=== PATIENT | female | born 1970 | race African-American/Black ===

== ENCOUNTER 2019-03-09 09:05 | Inpatient (IN) | payer OTHER ==
[2019-03-07 12:18] VITALS: BMI 29.2
[2019-03-09] MEDS ORDERED: ceFAZolin SODIUM 1 GM VIAL ONE ×3 (09:30→16:43)
[2019-03-09] MEDS ORDERED: CEFAZOLIN 2 GM/D5W 2 GM/50 ML ML IVPB ONE (09:36)
[2019-03-09] MEDS ORDERED: PROPOFOL 20 ML ONE (10:16)
[2019-03-09] MEDS ORDERED: MIDAZOLAM HCL 2 MG/2 ML SINGLE DOSE VIAL ONE ×5 (10:17→10:40)
[2019-03-09] MEDS ORDERED: DEXAMETHASONE SOD PHOSPHATE 4 MG/1 ML VIAL ONE (10:17)
[2019-03-09] MEDS ORDERED: KETOROLAC TROMETHAMINE 30 MG/1 ML VIAL ONE (10:17)
[2019-03-09] MEDS ORDERED: BUPIVACAINE LIPOSOME/PF (EXPAREL) 266 MG/20 ML VIAL ONE (10:18)
[2019-03-09] MEDS ORDERED: BUPIVACAINE HCL/PF 0.25% (2.5MG/ML) 10 ML VIAL ONE (10:18)
[2019-03-09] MEDS ORDERED: ROCURONIUM BROMIDE 50 MG/5 ML SYRINGE ONE (10:18)
[2019-03-09] MEDS ORDERED: DESFLURANE GAS 240 ML BOTTLE IH ONE (10:22)
[2019-03-09] MEDS ORDERED: SCOPOLAMINE HYDROBROMIDE 1 PATCH PATCH.TD72 ONE (10:41)
[2019-03-09] MEDS ORDERED: ACETAMINOPHEN INJECTION 100 ML IVPB ONE (10:42)
[2019-03-09] MEDS ORDERED: ONDANSETRON 4 MG/2 ML VIAL IVPUSH PRN ×3 (10:47→13:14)
[2019-03-09] MEDS ORDERED: HYDROmorphone HCl 2 MG/ML VIAL IVPUSH PRN (10:49)
[2019-03-09] MEDS ORDERED: fentaNYL CITRATE 250 MCG/5 ML VIAL ONE (11:15)
[2019-03-09] MEDS ORDERED: ceFAZolin SODIUM 1 GM VIAL IVPB ONE (11:29)
[2019-03-09] MEDS ORDERED: NEOSTIGMINE METHYLSULFATE 0.5 MG/ML - 10 ML MDV ONE (12:11)
[2019-03-09] MEDS ORDERED: GLYCOPYRROLATE 0.2 MG/1 ML VIAL ONE ×3 (12:12→12:56)
--- NOTE | 2019-03-09 12:56 | OP ---
Operative Note - Note: Operative Date: 03/09/19 Pre-Operative Diagnosis: Large uterine leiomyomata. Menorrhagia. Pelvic pain. Operation: KEVIN & BS. ROSE Post-Operative Diagnosis: Other (Same + pelvic/abdominal adhesions.) Surgeon: Greg Mccain Anesthesia: General Estimated Blood Loss (mls): 50 Operative Report Dictated: Yes
[2019-03-09] MEDS ORDERED: IBUPROFEN 800 MG/8 ML IJ IVPB PRN (13:14)
[2019-03-09] MEDS ORDERED: DOCUSATE SODIUM 100 MG CAPSULE (FP) PO PRN (13:14)
[2019-03-09] MEDS ORDERED: SIMETHICONE 80 MG TAB.CHEW (FP) PO PRN (13:14)
[2019-03-09] MEDS ORDERED: BISACODYL 5 MG TABLET.DR (FP) PO ONE (13:14)
[2019-03-09] MEDS ORDERED: oxyCODONE HCL 5 MG TABLET PO PRN (13:14)
[2019-03-09] MEDS ORDERED: ACETAMINOPHEN 325 MG TABLET (FP) PO PRN (13:14)
--- NOTE | 2019-03-09 13:26 | SURG ---
Surgery Video Game Producer Note Video Game Producer: Ke Larose PA-C Date of Service: 03/09/19 Diagnosis: Large uterine leiomyomata. Menorrhagia. Pelvic pain. Procedure: Total abdominal hysterectomy, bilateral salpingectomy, and lysis of adhesions I was present for the entirety of the operative procedure. For further detail, please refer to operative report. Visit type - Case Type Case Type: Scheduled - Emergency Emergency Visit: No - New patient This patient is new to me today: Yes Date on this admission: 03/09/19 - Critical Care Critical Care patient: No
[2019-03-09] MEDS: HYDROmorphone HCl 2 MG/ML VIAL IVPUSH PRN ×4 (13:52→14:38)
[2019-03-09] MEDS ORDERED: HYDROmorphone HCl 2 MG/ML VIAL ONE (13:52)
[2019-03-09] MEDS: LACTATED RINGERS SOLUTION 1,000 ML IV SCH (15:10)
--- NOTE | 2019-03-09 15:38 | OP ---
DATE OF OPERATION: DATE OF DICTATION: 03/09/2019 PREOPERATIVE DIAGNOSES: 1. Large, enlarging uterine leiomyoma. 2. Pelvic pain. 3. Menometrorrhagia. POSTOPERATIVE DIAGNOSES: 1. Large, enlarging uterine leiomyoma. 2. Pelvic pain. 3. Menometrorrhagia. 4. Pelvic and abdominal adhesions. OPERATION: 1. Total abdominal hysterectomy and bilateral salpingectomy. 2. Lysis of adhesions. SURGEON: Marlene Hopper MD PANTS BUSHELER: SEVERIANO Simmons ANESTHESIOLOGIST: Eneida Chilel MD ANESTHESIA: General and TAP block. PROCEDURE AND FINDINGS: Under excellent anesthesia in dorsal supine position, patient was examined, and abdomen was prepped and draped in the normal fashion. Skin was opened in line with very well-healed previous section scar and extended transversely through the whole depth of subcutaneous tissue. Fascia was opened transversely, dissected off the recti muscles, which were then divided using Bovie in the midline. Peritoneum was entered vertically. Findings were as follows: Large uterus compatible with about 16 weeks with massive posterior myoma filling the cul-de-sac and pressing on the vagina was noted. Another anterior and superior myoma was identified, and cervix was retracted and placed very anteriorly. Cervix was difficult to identify on examination with or without anesthesia and even on direct intraoperative evaluation it was not clear to assess its position. Adnexa were within normal limits. The remaining content of abdomen and pelvis were within normal limits as well with normal appendix. Right-sided tube was resected using LigaSure. Right-sided round ligament was opened with LigaSure, and broad ligament was entered. Utero-ovarian ligament was then divided using LigaSure, and additional tie was placed on the proximal stump. Anterior and posterior leaf of broad ligament were incised, and bladder was dissected sharply without any difficulties. Uterine plexus was identified on the right side, clamped, divided, and suture ligated with Vicryl 0. Left side was then addressed. Mesosalpinx was identified using LigaSure. That tube was left attached to the uterus. The round ligament was opened, broad ligament was entered, and utero-ovarian ligament was divided with LigaSure and ligated. Bladder flap was taken completely off the cervix. Uterine plexus was clamped, divided, and suture ligated. Cardinal ligaments and uterosacral ligaments required 1 clamp, divide, and suture approach on each of them bilaterally. Vaginal vault was entered sharply posteriorly, and cervix was excised. IUD string was noted protruding from the cervix. Specimen was sent for pathology. Vaginal vault was closed using Vicryl 0 sutures. Angles were secured in modified TeLinde fashion, which were also suspected on uterosacral and cardinal ligament stumps. Remains of the vault were closed with continuous running 2-0 Vicryl sutures. Pelvis was lavaged totally and examined. Hemostasis was excellent. At this point, adhesion between the omentum to anterior abdominal wall were identified. They were all released using primarily LigaSure as well as Bovie. This was necessary for the decrease in pelvic pain, decrease in potential bowel obstruction, and to allow better closure of the peritoneum. This part of the surgery went uneventfully as well. With the count reported correct, abdomen was closed in layers. Peritoneum was closed with continuous running 2-0 Vicryl, fascia with continuous running 1 Vicryl, subcutaneous tissue with interrupted 2-0 Biosyn suture, and skin was closed with continuous running subcuticular Biosyn 2-0. Steri-Strips were applied. Dressing was placed on the abdomen and secured in place using a binder. Blood loss was 50 mL. Urine was clear in the Licea catheter bag. Patient withstood the surgery very well and was transferred to the PACU awake and comfortable. MARLENE HOPPER MD [id number] MTDD
[2019-03-09] MEDS ORDERED: DEXTROSE 5%-WATER - 50 ML IVPB ONE (16:43)
[2019-03-09] MEDS: CEFAZOLIN 1 GM in DEXTROSE 5%-WATER - 50 ML IVPB SCH (17:02)
--- NOTE | 2019-03-09 21:11 | PN ---
Progress Note (short form) - Note Progress Note: Postop. 21:05 hrs. Pt feels well. Good pain control. Not OOB yet. Procedure and findings discussed in details. Incision clean and dry. OOB! discussed w nursing. Licea out tonight. Diet as tolerated.
[2019-03-09] MEDS: oxyCODONE HCL 5 MG TABLET PO PRN (21:17)
[2019-03-09] MEDS ORDERED: amLODIPine BESYLATE 10 MG TABLET (FP) PO SCH (22:00)
[2019-03-10] MEDS ORDERED: ceFAZolin SODIUM 1 GM VIAL ONE ×2 (02:34→09:07)
[2019-03-10] MEDS ORDERED: DEXTROSE 5%-WATER - 50 ML IVPB ONE ×2 (02:34→09:07)
[2019-03-10] MEDS: CEFAZOLIN 1 GM in DEXTROSE 5%-WATER - 50 ML IVPB SCH ×2 (02:40→09:29)
[2019-03-10] MEDS: LACTATED RINGERS SOLUTION 1,000 ML IV SCH (04:02)
--- NOTE | 2019-03-10 08:43 | PN ---
Progress Note (short form) - Note Progress Note: Surgery POD #1 Total abdominal hysterectomy, bilateral salpingectomy, and lysis of adhesions patient seen and examined at bedside with no complaints. Her pain is controlled and she has been ambulating to the bathroom to void without limitation. She is tolerating her clears and would like to eat. She denies any CP, SOB, N/V, fever or chills. She is refusing labs this morning. Vital Signs Temp 98.6 F 03/10/19 07:39 Pulse 82 03/10/19 07:39 Resp 15 03/10/19 07:39 BP 127/77 03/10/19 07:39 Pulse Ox 99 03/09/19 21:00 Intake & Output 03/09/19 03/09/19 03/10/19 11:59 23:59 11:59 Intake Total 1300 775 950 Output Total 400 1050 100 Balance 900 -275 850 Intake: IV 1300 575 900 Lactated Ringers Solution 75 900 1,000 ml @ 75 mls/hr IV ASDIR MAYURI Rx#:[id number] IVPB 50 Oral 200 Output: Urine 350 1050 100 Licea 500 Void 50 100 Estimated Blood Loss 50 Other: Voiding Method Toilet Bowel Movement No PE: A&Ox3, NAD Unlabored resp on RA ABD: obese, soft, ND with mild TTP throughout b/l lower quadrants. Incision c/d/ i with steri strips in place and surroudning tissue with no tracking erythema, no evidence of collection or active d/c. B/L LE compartments soft, supple and non-tender with +2 PD pulses. Problem List - Problems (1) S/P total abdominal hysterectomy and bilateral salpingo-oophorectomy Assessment/Plan: POD #1 patient doing well. 1) Advance to regular diet 2) OOB as tolerated 3) encourage daily IS 4) Pain control 5) plan for d/c home tomorrow. Evaluation and plan discussed with Dr Mccain Code(s): Z90.710 - ACQUIRED ABSENCE OF BOTH CERVIX AND UTERUS; Z90.722 - ACQUIRED ABSENCE OF OVARIES, BILATERAL; Z90.79 - ACQUIRED ABSENCE OF OTHER GENITAL ORGAN(S)
[2019-03-10] MEDS: ENOXAPARIN NA (PORCINE) 40 MG/0.4 ML DISP.SYRIN SQ SCH (09:28)
[2019-03-10] MEDS: metoPROLOL SUCCINATE 25 MG TAB.SR.24H (FP) PO SCH (09:28)
[2019-03-10] MEDS: LOSARTAN POTASSIUM 50 MG TABLET (FP) PO SCH (09:29)
[2019-03-10] MEDS: HYDROCHLOROTHIAZIDE 25 MG TABLET (FP) PO SCH (09:29)
[2019-03-10] MEDS: IBUPROFEN 600 MG TABLET (FP) PO PRN (09:45)
[2019-03-10 10:05] LABS: HEMATOCRIT 32.8 % (32.4-45.2); MCH 29.1 pg (25.7-33.7); MCHC 33.4 g/dl (32.0-36.0); MEAN PLT VOLUME 9.5 fl (7.5-11.1); PLATELET COUNT 193 K/MM3 (134-434); RBC 3.78 M/mm3 (3.60-5.2); RDW 14.5 % (11.6-15.6); WHITE BLOOD COUNT 9.8 K/mm3 (4.0-10.0)
[2019-03-10] MEDS ORDERED: IBUPROFEN 600 MG TABLET (FP) PO PRN (13:14)
--- NOTE | 2019-03-10 15:40 | PN ---
Progress Note (short form) - Note Progress Note: Patient is doing well. Had shower, OOB, tolerates food. Flatus pos. For discharge nery laron. All discussed. Office in 3 weeks or PRN.
[2019-03-10] MEDS: oxyCODONE HCL 5 MG TABLET PO PRN (21:30)
[2019-03-11] MEDS: IBUPROFEN 600 MG TABLET (FP) PO PRN (08:25)
--- NOTE | 2019-03-11 08:48 | DS ---
Physical Exam: SUBJECTIVE: Patient seen and examined OBJECTIVE: Vital Signs Temperature 97.8 F 03/11/19 05:25 Pulse Rate 60 03/11/19 05:25 Respiratory Rate 20 03/11/19 05:25 Blood Pressure 125/60 03/11/19 05:25 O2 Sat by Pulse Oximetry (%) 99 03/10/19 21:00 PHYSICAL EXAM GENERAL: The patient is awake, alert, and fully oriented, in no acute distress. HEAD: Normal with no signs of trauma. EYES: PERRL, extraocular movements intact, sclera anicteric, conjunctiva clear. ENT: Ears normal, nares patent, oropharynx clear without exudates, moist mucous membranes. NECK: Trachea midline, full range of motion, supple. LUNGS: Breath sounds equal, clear to auscultation bilaterally, no wheezes, no crackles, no accessory muscle use. HEART: Regular rate and rhythm, S1, S2 without murmur, rub or gallop. ABDOMEN: Soft, incisonal tenderness. Dressing c/d/i. No hematoma. EXTREMITIES: 2+ pulses, warm, well-perfused, no edema. NEUROLOGICAL: CN II - XII grossly intact. Normal speech, gait not observed. PSYCH: Normal mood, normal affect. SKIN: Warm, dry, normal turgor, no rashes or lesions noted. LABS CBC,CMP WBC 9.8 K/mm3 (4.0-10.0) 03/10/19 09:19 RBC 3.78 M/mm3 (3.60-5.2) 03/10/19 09:19 Hgb 11.0 GM/dL (10.7-15.3) 03/10/19 09:19 Hct 32.8 % (32.4-45.2) 03/10/19 09:19 MCV 87.0 fl (80-96) 03/10/19 09:19 MCH 29.1 pg (25.7-33.7) 03/10/19 09:19 MCHC 33.4 g/dl (32.0-36.0) 03/10/19 09:19 RDW 14.5 % (11.6-15.6) 03/10/19 09:19 Plt Count 193 K/MM3 (134-434) 03/10/19 09:19 MPV 9.5 fl (7.5-11.1) 03/10/19 09:19 Serum , Qual Negative 03/09/19 09:27 HOSPITAL COURSE: Date of Admission:03/09/19 Date of Discharge: 03/11/19 The patient was admitted to the Med-Surg Unit after an elective repair of her leiomyomas/pelvic pain. Now, s/p open abdominal hysterectomy. Pain management was achieved with a narcotic and non-narcotic oral and IV regimen. POD #1, the patient passed flatus and diet was advanced. Hemoglobin and hematocrit were monitored as well as vitals and remained stable throughout admission. Karen-operative IV ABX were administered. DVT prophylaxis was achieved with Lovenox 40mg qd, SCDs and early ambulation. The patient ambulated the halls without issue. The discharge instructions and an oral pain management plan were reviewed with the patient. All questions answered. Above plan discussed with Dr. Mccain and agreed. Minutes to complete discharge: 35 Visit type - Case Type Case Type: Scheduled - New patient This patient is new to me today: Yes Date on this admission: 03/11/19
[2019-03-11] MEDS ORDERED: BISACODYL 10 MG SUPP.RECT RC ONE (09:45)
[2019-03-11] MEDS: ENOXAPARIN NA (PORCINE) 40 MG/0.4 ML DISP.SYRIN SQ SCH (09:57)
[2019-03-11] MEDS: HYDROCHLOROTHIAZIDE 25 MG TABLET (FP) PO SCH (09:58)
[2019-03-11] MEDS: metoPROLOL SUCCINATE 25 MG TAB.SR.24H (FP) PO SCH (09:58)
[2019-03-11] MEDS: LOSARTAN POTASSIUM 50 MG TABLET (FP) PO SCH (09:59)
[2019-03-11 14:37] VITALS: BP 115/65; PULSE 54; TEMP 98.5
--- NOTE | 2019-03-11 17:21 | PATH ---
Surgical Pathology Report Patient Name: SHEA FISHER [facility]. Rec. #: [id number] /Age/Gender: 1970 (Age: 49) / F Account: [id number] Location: [address] [place] [address] Taken: 03/09/2019 Received: 03/09/2019 Reported: 03/11/2019 Physicians: Greg Mccain MD Specimen(s) Received A: UTERUS, CERVIX, LEFT FALLOPIAN TUBE B: RIGHT FALLOPIAN TUBE Clinical History Leiomyoma of uterus, pelvic pain Final Diagnosis A. UTERUS, CERVIX, LEFT FALLOPIAN TUBE, HYSTERECTOMY AND LEFT SALPINGECTOMY: LEIOMYOMATA. ENDOMETRIUM WITH MARKED CHRONIC ENDOMETRITIS, ENDOMETRIAL EROSION, AND FIBRINOUS EXUDATE. CERVIX WITH CHRONIC CERVICITIS AND SQUAMOUS METAPLASIA. PORTION OF LEFT FALLOPIAN TUBE WITH NO SIGNIFICANT PATHOLOGIC CHANGE. ONE INTRAUTERINE DEVICE, GROSS EXAMINATION ONLY. B. RIGHT FALLOPIAN TUBE, SALPINGECTOMY: PORTION OF FALLOPIAN TUBE WITH NO SIGNIFICANT PATHOLOGIC CHANGE. Electronically Signed Layla Matias M.D. Gross Description A. Received in formalin labeled "uterus, cervix, left fallopian tube," is a 655 gram uterus with an attached cervix and an attached left fallopian tube. The specimen measures 13 cm from anterior to posterior, 12 cm from superior to inferior and 7.8 cm from left to right. The serosa is payne-lagunas with focal bulging subserosal nodules. The attached cervix measures 3.8 cm in length and 2.8 cm in diameter. The ectocervix is payne, smooth and glistening. The endocervix is unremarkable. The endometrial cavity measures 5.5 cm in length and 3.8 cm from cornu to cornu. There is a 3 cm in length T-shaped foreign body present within the endometrial cavity, consistent with an IUD. The endometrium is red and averages 0.1 cm in thickness. The myometrium displays multiple intramural nodules, measuring up to 8.3 cm in greatest dimension. The cut surface of the subserosal and intramural nodules is payne and rubbery with whorled architecture. No areas of hemorrhage or necrosis are identified. The remaining myometrium is payne-pink and measures up to 7 cm in thickness. The left fimbriated fallopian tube measures 7 cm in length. The outer surface is norton purple and smooth. Sectioning reveals an unremarkable lumen. Fund Development Manager sections are submitted in 14 cassettes as follows: 1-anterior cervix; 2-posterior cervix; 7-8-fpevtvwt endomyometrium; 6-5-dsqlnsnin endomyometrium; 7-subserosal nodules; 8-intramural nodules; 2-57-bbfyopa intramural nodule; 13-left fallopian tube fimbria; 14-cross sections of left fallopian tube. B. Received in formalin labeled "right fallopian tube," is a 6 cm in length fimbriated fallopian tube. The outer surface is lagunas purple and smooth. Sectioning reveals an unremarkable lumen. Fund Development Manager sections are submitted in 2 cassettes as follows: 1-fimbria; 2-cross sections of fallopian tube. 03/10/2019 saudi03/10/2019
== END 2019-03-11 17:27 | disposition home or self-care (01) | DRG 743 ==
LOC: JSAMEDAYSX 09:05 → J6S 15:27
PROVIDERS: ADMIT Specialist; ATTEND Specialist
PROC: 0JNC0ZZ Release Pelvic Region Subcutaneous Tissue and Fascia, Open Approach (ICD-10-PCS; 2019-03-09)
PROC: 0UT90ZZ Resection of Uterus, Open Approach (ICD-10-PCS; principal; 2019-03-09 11:00)
PROC: 0UT70ZZ Resection of Bilateral Fallopian Tubes, Open Approach (ICD-10-PCS; 2019-03-09 11:00)
DX: D25.9 Leiomyoma of uterus, unspecified (principal); N92.0 Excessive and frequent menstruation with regular cycle; N73.6 Female pelvic peritoneal adhesions (postinfective)
CPT/HCPCS: 36415; 84703; 85027; 86850; 86900; 86901; 88302-TC; 88307-TC; 94760; J0131